=== PATIENT | female | born 1955 | race Asian ===

== ENCOUNTER 2016-04-02 15:29 | Emergency (ER) | payer OTHER ==
[~2016-04-02] VITALS: Ht 172.7 cm; Wt 66.2 kg
[2016-04-02 15:38] VITALS: TEMP 98.1
[2016-04-02 16:42] LABS: POTASSIUM 3.8 mmol/L (3.6-5.2)
[2016-04-02 16:44] LABS: PLATELET COUNT 265 K/uL (152-353)
[2016-04-02 17:36] VITALS: BP 168/84
== END 2016-04-02 17:43 | disposition home or self-care (01) ==
LOC: ED 15:29
PROVIDERS: Family Medicine
DX: R06.09 Other forms of dyspnea (principal); J20.9 Acute bronchitis, unspecified; N28.9 Disorder of kidney and ureter, unspecified; Z91.19 Patient's noncompliance with other medical treatment and regimen
CPT/HCPCS: 36415; 80053; 85027; 87804; 96361; 96374; 99284; J1885

== ENCOUNTER 2016-09-14 10:20 | Outpatient (CLI) | payer OTHER | END 2016-09-14 11:30 | disposition home or self-care (01) | LOC: RAD 10:20 | DX: M25.511 Pain in right shoulder (principal) ==

== ENCOUNTER 2016-09-27 23:27 | Emergency (ER) | payer OTHER ==
[~2016-09-27] VITALS: Ht 172.7 cm; Wt 106.6 kg
[2016-09-28 00:52] VITALS: BP 123/85; TEMP 98.5
== END 2016-09-28 00:52 | disposition short-term general hospital (02) ==
LOC: ED 23:27
DX: S42.391 Other fracture of shaft of right humerus (principal); S11.80XA Unspecified open wound of other specified part of neck, initial encounter; S21.201A Unspecified open wound of right back wall of thorax without penetration into thoracic cavity, initial encounter; X95.9XXA Assault by unspecified firearm discharge, initial encounter
CPT/HCPCS: 96361; 96374; 96375; 99291; J2270; J2405

== ENCOUNTER 2016-09-28 23:19 | Outpatient (CLI) | payer OTHER | END 2016-09-28 23:22 | disposition short-term general hospital (02) | LOC: AMB 23:19 | DX: S41.101A Unspecified open wound of right upper arm, initial encounter (principal); X95.8XXA Assault by other firearm discharge, initial encounter; Y92.098 Other place in other non-institutional residence as the place of occurrence of the external cause | CPT/HCPCS: A0425; A0427 ==

== ENCOUNTER 2017-02-03 14:54 | Outpatient (CLI) | payer OTHER | END 2017-02-03 19:25 | disposition home or self-care (01) | LOC: MAMMO 14:54 | DX: Z12.31 Encounter for screening mammogram for malignant neoplasm of breast (principal) ==

== ENCOUNTER 2017-03-14 13:02 | Emergency (ER) | payer OTHER ==
[~2017-03-14] VITALS: Ht 172.7 cm; Wt 97.5 kg
[2017-03-14 14:12] LABS: PLATELET COUNT 295 K/uL (152-353)
[2017-03-14 14:38] VITALS: BP 137/85; TEMP 97.2
== END 2017-03-14 14:45 | disposition home or self-care (01) ==
LOC: ED 13:02
DX: G43.909 Migraine, unspecified, not intractable, without status migrainosus (principal); B34.9 Viral infection, unspecified
CPT/HCPCS: 36415; 85027; 87081; 87804; 87880; 99283

== ENCOUNTER 2017-07-26 11:55 | Outpatient (CLI) | payer OTHER | END 2017-07-26 19:50 | disposition home or self-care (01) | LOC: RAD 11:55 | DX: M25.511 Pain in right shoulder (principal) ==

== ENCOUNTER 2018-02-09 09:29 | Outpatient (CLI) | payer OTHER | END 2018-02-09 19:02 | disposition home or self-care (01) | LOC: MAMMO 09:29 | DX: Z12.31 Encounter for screening mammogram for malignant neoplasm of breast (principal) ==

== ENCOUNTER 2020-02-20 22:36 | Emergency (ER) | payer OTHER ==
[~2020-02-20] VITALS: Ht 172.7 cm; Wt 90.7 kg
[2020-02-21 00:50] LABS: PLATELET COUNT 456 K/uL (152-353)
[2020-02-21 01:02] LABS: POTASSIUM 4.5 mmol/L (3.6-5.2)
[2020-02-21 03:35] VITALS: BP 126/73; TEMP 98
== END 2020-02-21 03:35 | disposition home or self-care (01) ==
LOC: ED 22:36
PROVIDERS: Emergency Medicine Emergency Medical Services
DX: E11.65 Type 2 diabetes mellitus with hyperglycemia (principal); Z79.84 Long term (current) use of oral hypoglycemic drugs
CPT/HCPCS: 36415; 80053; 81000; 81002; 82962; 83690; 85027; 87077; 87086; 87088; 87186; 96360; 96361; 96375; 99284; J1815

== ENCOUNTER 2020-05-29 11:23 | Day surgery (SDC) | payer OTHER ==
[2020-05-22 10:45] LABS: PLATELET COUNT 229 K/uL (152-353); POTASSIUM 3.7 mmol/L (3.6-5.2)
== END 2020-05-29 14:00 | disposition home or self-care (01) ==
LOC: OR 11:23
PROVIDERS: ATTEND Internal Medicine Gastroenterology
PROC: 0DB68ZZ Excision of Stomach, Via Natural or Artificial Opening Endoscopic (ICD-10-PCS; principal; 2020-05-29)
PROC: 0DB88ZZ Excision of Small Intestine, Via Natural or Artificial Opening Endoscopic (ICD-10-PCS; 2020-05-29)
PROC: 0D738ZZ Dilation of Lower Esophagus, Via Natural or Artificial Opening Endoscopic (ICD-10-PCS; 2020-05-29)
DX: K22.4 Dyskinesia of esophagus (principal); K22.2 Esophageal obstruction; K29.50 Unspecified chronic gastritis without bleeding; R13.19 Other dysphagia; K21.00 Gastro-esophageal reflux disease with esophagitis, without bleeding; R10.13 Epigastric pain; Z20.822 Contact with and (suspected) exposure to COVID-19
CPT/HCPCS: 80053; 85027; 86769; 87635; J7120; U0003

== ENCOUNTER 2020-07-10 14:14 | Day surgery (SDC) | payer OTHER ==
[2020-07-04 13:37] LABS: PLATELET COUNT 217 K/uL (152-353)
[2020-07-04 14:03] LABS: POTASSIUM 3.8 mmol/L (3.6-5.2)
== END 2020-07-10 17:27 | disposition home or self-care (01) ==
LOC: OR 14:14
PROVIDERS: ATTEND Internal Medicine Gastroenterology
PROC: 0DBH8ZZ Excision of Cecum, Via Natural or Artificial Opening Endoscopic (ICD-10-PCS; principal; 2020-07-10)
DX: D12.0 Benign neoplasm of cecum (principal); K64.8 Other hemorrhoids; Z12.11 Encounter for screening for malignant neoplasm of colon; Z20.822 Contact with and (suspected) exposure to COVID-19
CPT/HCPCS: 80053; 85027; 87635; J2704; U0003

== ENCOUNTER 2021-06-11 09:31 | Outpatient (CLI) | payer OTHER | END 2021-06-11 19:17 | disposition home or self-care (01) | LOC: MAMMO 09:31 | PROVIDERS: ATTEND Internal Medicine | DX: Z12.31 Encounter for screening mammogram for malignant neoplasm of breast (principal); Z13.820 Encounter for screening for osteoporosis; N95.8 Other specified menopausal and perimenopausal disorders ==

== ENCOUNTER 2021-06-15 04:56 | Emergency (ER) | payer OTHER ==
[~2021-06-15] VITALS: Ht 172.7 cm; Wt 104.3 kg
[2021-06-15 05:50] LABS: PLATELET COUNT 224 K/uL (152-353)
[2021-06-15 06:00] LABS: POTASSIUM 3.2 mmol/L (3.6-5.2)
[2021-06-15 06:18] LABS: PARTIAL THROMBOPLASTIN TIME 26.4 SECONDS (24.5-33.6)
[2021-06-15 07:00] VITALS: BP 131/56
== END 2021-06-15 07:00 | disposition home or self-care (01) ==
LOC: ED 04:56
PROVIDERS: Family Medicine
DX: M19.012 Primary osteoarthritis, left shoulder (principal); N18.30 Chronic kidney disease, stage 3 unspecified; E87.6 Hypokalemia; M75.52 Bursitis of left shoulder; M79.622 Pain in left upper arm
CPT/HCPCS: 36415; 80053; 82550; 84484; 85027; 85379; 85610; 85730; 93005; 96374; 99284; J1885

== ENCOUNTER 2021-07-03 09:16 | Outpatient (CLI) | payer OTHER | END 2021-07-03 21:02 | disposition home or self-care (01) | LOC: CT 09:16 | PROVIDERS: ATTEND Internal Medicine | DX: N64.59 Other signs and symptoms in breast (principal); R92.8 Other abnormal and inconclusive findings on diagnostic imaging of breast; R91.8 Other nonspecific abnormal finding of lung field | CPT/HCPCS: Q9963 ==

== ENCOUNTER 2021-07-30 12:07 | Outpatient (CLI) | payer OTHER | END 2021-07-30 19:12 | disposition home or self-care (01) | LOC: US 12:07 | PROVIDERS: ATTEND Internal Medicine | DX: R60.0 Localized edema (principal); R26.2 Difficulty in walking, not elsewhere classified ==

== ENCOUNTER 2022-05-26 10:32 | Outpatient (CLI) | payer OTHER | END 2022-05-26 19:14 | disposition home or self-care (01) | LOC: RESP 10:32 | PROVIDERS: ATTEND Internal Medicine | DX: Z01.818 Encounter for other preprocedural examination (principal) | CPT/HCPCS: 93005 ==

== ENCOUNTER 2022-08-27 23:44 | Emergency (ER) | payer OTHER ==
[~2022-08-27] VITALS: Ht 172.7 cm; Wt 95.3 kg
[2022-08-28 00:15] VITALS: TEMP 99.2
[2022-08-28 01:15] LABS: PLATELET COUNT 317 K/uL (152-353)
[2022-08-28 01:17] LABS: POTASSIUM 4.5 mmol/L (3.6-5.2)
[2022-08-28 03:00] VITALS: BP 108/58
== END 2022-08-28 03:00 | disposition home or self-care (01) ==
LOC: ED 23:44
PROVIDERS: Family Medicine
DX: S39.011A Strain of muscle, fascia and tendon of abdomen, initial encounter (principal); R10.9 Unspecified abdominal pain
CPT/HCPCS: 80053; 81000; 85027; 96374; 96375; 99284; J1100; J1885